=== PATIENT | female | born 1980 | race Asian ===

== ENCOUNTER 2022-07-23 10:31 | Outpatient (CLI) | payer BC, SELFPAY ==
[2022-07-23 22:15] LABS: Cholesterol* 189 mg/dL (90-199)
[2022-07-23 22:16] LABS: Glucose* 86 mg/dL (60-115); HDL Cholesterol* 68 mg/dL (>=50); LDL Cholesterol Calculated 109 mg/dL (<100); Triglycerides* 61 mg/dL (40-149)
[2022-07-23 22:53] LABS: Ferritin* 33.6 ng/mL (6.24-137.0)
== END 2022-07-23 10:32 | disposition home or self-care (01) ==
PROVIDERS: PCP Physician Assistant Medical; Visit Provider Physician Assistant Medical
DX: Z01.419 Encounter for gynecological examination (general) (routine) without abnormal findings (principal); L30.9 Dermatitis, unspecified; Z13.6 Encounter for screening for cardiovascular disorders; Z13.1 Encounter for screening for diabetes mellitus
CPT/HCPCS: 80061; 82728; 82947

== ENCOUNTER 2022-07-29 10:33 | Outpatient (CLI) | payer BC, SELFPAY ==
--- NOTE | 2022-07-29 10:45 | CRLHL7_ITS ---
For Patients: As a result of the Cures Act, medical imaging exams and procedure reports are released immediately into your electronic medical record. You may view this report before your referring provider. If you have questions, please contact your health care provider. DIGITAL DIAGNOSTIC BILATERAL MAMMOGRAM USING TOMOSYNTHESIS AND COMPUTER-AIDED DETECTION BILATERAL BREAST ULTRASOUND CLINICAL HISTORY: RIGHT breast lump. COMPARISON: None. TECHNIQUE: Digital BILATERAL mammogram in four projections. Tomosynthesis and CAD utilized. Real-time ultrasound imaging of BILATERAL breast with imaging documentation. BREAST COMPOSITION: The breasts are heterogeneously dense, which may obscure small masses. FINDINGS: BILATERAL mammograms demonstrate a nodular density within the lateral RIGHT breast and within the lower outer quadrant of the LEFT breast without architectural distortion. Benign calcifications are present bilaterally. No adenopathy. Targeted LEFT breast ultrasound performed at 5 o`clock 3 cm from the nipple. In this location there is a simple anechoic cyst measuring 8 x 6 x 5 millimeters. Targeted RIGHT breast ultrasound performed at 9 o`clock 2 cm from the nipple. In this location there is a simple anechoic cyst measuring 6 x 4 x 7 millimeters. IMPRESSION: BILATERAL benign fibrocystic changes. No evidence of malignancy. RECOMMENDATIONS: Annual BILATERAL screening mammography. Results and recommendations discussed with the patient. BI-RADS Category 2: Benign A lay language report of this examination will be provided to the patient. Dictated by: Wesley Arias MD @07/29/2022 12:19:40 PM patricia/Dictated by: Wesley rAias MD @ 07/29/2022 12:19:00 PM (Electronically Signed)
--- NOTE | 2022-07-29 11:15 | CRLHL7_ITS ---
For Patients: As a result of the Cures Act, medical imaging exams and procedure reports are released immediately into your electronic medical record. You may view this report before your referring provider. If you have questions, please contact your health care provider. PLEASE SEE DIGITAL DIAGNOSTIC BILATERAL MAMMOGRAM PERFORMED SAME DAY CRL:maría elena ring/Dictated by: Wesley Arias MD @ 07/29/2022 12:19:00 PM (Electronically Signed)
== END 2022-07-29 10:34 | disposition home or self-care (01) ==
LOC: MAMMO 10:34
PROVIDERS: PCP Physician Assistant Medical; Visit Provider Physician Assistant Medical
DX: N63.10 Unspecified lump in the right breast, unspecified quadrant (principal)
CPT/HCPCS: 76642; 77066; G0279

== ENCOUNTER 2024-06-07 10:55 | Outpatient (CLI) | payer BC, SELFPAY | END 2024-06-07 10:56 | disposition home or self-care (01) | PROVIDERS: PCP Physician Assistant Medical; Visit Provider Emergency Medicine | DX: Z00.00 Encounter for general adult medical examination without abnormal findings (principal); Z13.6 Encounter for screening for cardiovascular disorders; Z13.1 Encounter for screening for diabetes mellitus | CPT/HCPCS: 80061; 82947 ==

== ENCOUNTER 2024-10-15 10:08 | Outpatient (CLI) | payer OTHER, SELFPAY | END 2024-10-15 10:09 | disposition home or self-care (01) | LOC: NFLDREF 10-17 02:19 | PROVIDERS: PCP Physician Assistant Medical; Referring Provider Physician Assistant Medical; Visit Provider Nurse Practitioner Family | DX: R30.0 Dysuria (principal) | CPT/HCPCS: 87086 ==

== ENCOUNTER 2024-11-10 11:30 | Outpatient (CLI) | payer OTHER, SELFPAY ==
--- NOTE | 2024-11-10 11:30 | CRLHL7_ITS ---
For Patients: As a result of the Century Cures Act, medical imaging exams and procedure reports are released immediately into your electronic medical record. You may view this report before your referring provider. If you have questions, please contact your health care provider. BILATERAL SCREENING MAMMOGRAM WITH COMPUTER-AIDED DETECTION AND TOMOSYNTHESIS TECHNIQUE: CC and MLO views were obtained. These mammographic images have been obtained using full-field digital technique. These mammographic images were interpreted with the benefit of computer-aided detection. Breast Tomosynthesis was used in this interpretation. COMPARISON FILM: 07/29/22. FINDINGS: The breasts are heterogeneously dense, which may obscure small masses. IMPRESSION: There is no radiographic evidence for malignancy. ASSESSMENT: BI-RADS Category 1: Negative RECOMMENDATION: Routine screening mammogram in 1 year. A lay language report of this examination will be provided to the patient. Wesley Arias M.D. Diagnostic Radiologist [email or web address] SP/Dictated by: Wesley Arias MD @ 11/15/2024 1:19:00 PM (Electronically Signed)
== END 2024-11-10 11:31 | disposition home or self-care (01) ==
LOC: MAMMO 11:31
PROVIDERS: PCP Physician Assistant Medical; Visit Provider Emergency Medicine
DX: Z12.31 Encounter for screening mammogram for malignant neoplasm of breast (principal); R92.333 Mammographic heterogeneous density, bilateral breasts
CPT/HCPCS: 77063; 77067

== ENCOUNTER 2025-01-10 07:14 | Outpatient (CLI) | payer OTHER, SELFPAY ==
--- NOTE | 2025-01-10 08:34 | P.ANES_ITS ---
Anesthesia Charges Start Date/Time Anesthesia Start Date: 01/10/25 Anesthesia Start Time: 08:00 Stop Date/Time Anesthesia Stop Date: 01/10/25 Anesthesia Stop Time: 08:29 Coding CPT Codes CPT Codes: ROSEANN LWR INTST SCR COLSC - 46205 ([id number]) P1 - NORMAL HEALTHY PATIENT, QK - CASE MANAGEMENT ASSISTANT 2-4 CNCRNT ANES PROC, QX - RN STAFFING SVC W/ MED DIRECTION
--- NOTE | 2025-01-10 08:34 | W.ANESCHARGE ---
Anesthesia Charges Start Date/Time Anesthesia Start Date: 01/10/25 Anesthesia Start Time: 08:00 Stop Date/Time Anesthesia Stop Date: 01/10/25 Anesthesia Stop Time: 08:29 Coding CPT Codes CPT Codes: ROSEANN LWR INTST SCR COLSC - 03860 ([id number]) P1 - NORMAL HEALTHY PATIENT, QK - BICYCLE SERVICE TECHNICIAN 2-4 CNCRNT ANES PROC, QX - DISABILITY EXAMINER SVC W/ MED DIRECTION
--- NOTE | 2025-01-10 08:40 | P.ANES_ITS ---
Anesthesia Charges Start Date/Time Anesthesia Start Date: 01/10/25 Anesthesia Start Time: 08:00 Stop Date/Time Anesthesia Stop Date: 01/10/25 Anesthesia Stop Time: 08:29 Coding CPT Codes CPT Codes: ROSEANN LWR INTST SCR COLSC - 85336 ([id number]) P1 - NORMAL HEALTHY PATIENT, QK - ASSEMBLER CONVERTIBLE TOP 2-4 CNCRNT ANES PROC, QX - BOAT JOINER SVC W/ MED DIRECTION
--- NOTE | 2025-01-10 08:40 | W.ANESCHARGE ---
Anesthesia Charges Start Date/Time Anesthesia Start Date: 01/10/25 Anesthesia Start Time: 08:00 Stop Date/Time Anesthesia Stop Date: 01/10/25 Anesthesia Stop Time: 08:29 Coding CPT Codes CPT Codes: ROSEANN LWR INTST SCR COLSC - 63495 ([id number]) P1 - NORMAL HEALTHY PATIENT, QK - PICK REMOVER 2-4 CNCRNT ANES PROC, QX - TOOL RADIAL DRILL PRESS SET UP OPERATOR SVC W/ MED DIRECTION
== END 2025-01-10 07:15 | disposition home or self-care (01) ==
LOC: OP CLINIC 07:15
PROVIDERS: PCP Physician Assistant Medical; Visit Provider Surgery
DX: Z12.11 Encounter for screening for malignant neoplasm of colon (principal); K64.4 Residual hemorrhoidal skin tags
CPT/HCPCS: 00812; 45378; J2704